=== PATIENT | male | born 1990 | race African-American/Black ===

== ENCOUNTER 2020-04-03 20:33 | Emergency (ER) | payer OTHER, SELFPAY ==
--- NOTE | ~2020-04-03 | XR_ITS ---
EXAMINATION: XR elbow LT min 3V DATE: 04/03/2020 21:23 INDICATION: Posterior left elbow pain TECHNIQUE: Anteroposterior, two oblique and lateral views of the left elbow were obtained. COMPARISON: None. FINDINGS: Alignment is normal. No fracture or joint effusion. Joint spaces are normal. No cortical erosions. So ft tissues are unremarkable. IMPRESSION: 1. Negative left elbow radiographs. Reviewed, dictated and finalized at location A.
[2020-04-03 20:37] VITALS: BP 129/89; PULSE 89; RESP 18; TEMP 36.4; O2SAT 98
[2020-04-03] MEDS: IBUPROFEN 400 MG TABLET 800 MG PO (21:27)
--- NOTE | 2020-04-03 21:59 | ED.UPPEXIN ---
HPI - Extremity Injury (Upper) General Chief Complaint: Extremity Injury, Upper Stated Complaint: L arm numbness Time Seen by Provider: 04/03/20 20:38 Source: patient Mode of arrival: EMS Limitations: no limitations History of Present Illness HPI narrative: This patient is a 29 year old male who presents for evaluation of tingling to his fingers. He reports over the past week he has intermittent tingling to his first through third fingers on his left hand. He states this seems to be worsen at night. HE denies having any numbness or tingling now. He denies focal weakness. He reports he does work out frequent. He reports intermittent pain to his left forearm, and this pain resolves with ibuprofen. HE has not taken medication since yesterday. His pain is currently 3/10. He denies headache, chest pain, sob, focal weakness. HE denies any complaints with left leg. MD complaint: injury to: left Related Data Allergies Allergy/AdvReac Type Severity Reaction Status Date / Time No Known Allergies Allergy Verified 04/03/20 20:42 Review of Systems Review of Systems: All systems reviewed & are unremarkable except as noted in HPI and below PMFSH Past Medical History Medical History (Updated 04/04/20 @ 00:00 by Toshia Erwin) Patient denies medical problems Surgical History Surgical History (Updated 04/03/20 @ 22:02 by Terri Hayden MD) No pertinent past surgical history Social History Social History (Updated 04/03/20 @ 22:02 by Terri Hayden MD) Smoking status: Never smoker Gender identity (if verbalized by the patient): Male Exam Const: General: no acute distress and alert Orientation/consciousness: patient oriented x3 HENMT: Head: normocephalic and atraumatic Face and sinus: normal facial exam, sinuses nontender and face symmetric Mouth: Yes Normal oral and palatal mucosa present, Yes lip normal, Yes oropharynx normal and Yes moist mucous membranes Eyes: EOM: EOMs intact bilaterally Neck: Neck: normal visual inspection and no lymphadenopathy Lymphatic: no lymphadenopathy noted Resp: Effort & Inspection: normal respiratory effort Skin: General skin exam: normal color Rashes: no rashes Neuro: General: patient oriented x3, moves all extremities, no focal motor deficits and CN's II-XI intact bilaterally Cranial nerves: Yes CN's II-XII intact bilaterally Speech: normal speech Gait exam (Neuro): Normal gait present Motor exam (neuro): 5/5 motor strength present throughout Sensory Exam: normal sensation and Normal double simultaneous stimulation for sensation Extrem: General: normal to inspection and no pedal edema Psych: Mental Status: mental status grossly normal Affect: normal affect Course Reevaluation(s) Reevaluation #1: PAtient has no focal deficits. He has normal sensation. He may have carpal tunnel or another peripheral nerve issue. Date: 04/03/20 Time: 22:04 Vital Signs Vital signs: Vital Signs Temperature 97.5 F L 04/03/20 20:37 Pulse Rate 89 04/03/20 20:37 Respiratory Rate 18 04/03/20 20:37 Blood Pressure 129/89 04/03/20 20:37 Pulse Oximetry 98 04/03/20 20:37 Temperature 97.5 F L 04/03/20 20:37 Pulse Rate 88 04/03/20 22:29 Respiratory Rate 14 04/03/20 22:29 Blood Pressure 138/88 04/03/20 22:29 Pulse Oximetry 98 04/03/20 22:29 MDM - Extremity Injury (Upper) Imaging Data Radiologist's impression: ITS Impressions Elbow X-Ray 04/03/20 21:35 IMPRESSION: 1. Negative left elbow radiographs. Discharge Plan Discharge Clinical Impression: Left hand paresthesia Patient Disposition: Home, Self-Care Condition: Stable Instructions: Antibiotic Form, Paresthesia (ED) Additional Instructions: today you were evaluated for tingling to your hand. This may be due to a pinched nerve such as carpal tunnel. You will need to follow up with primary care physician for evaluation. Prescriptions: New naproxe
[2020-04-03 22:29] VITALS: BP 138/88; PULSE 88; RESP 14; O2SAT 98
== END 2020-04-03 22:31 | disposition home or self-care (01) ==
PROVIDERS: Emergency Provider General Practice
DX: R20.2 Paresthesia of skin (principal)
CPT/HCPCS: 73080; 99283; A9270

== ENCOUNTER 2021-07-02 16:15 | Emergency (ER) | payer BC, SELFPAY ==
[2021-07-02 16:19] VITALS: BP 141/64; PULSE 119; RESP 20; TEMP 37.1
--- NOTE | 2021-07-02 18:07 | ED.URI ---
HPI - URI/Sore Throat General Chief Complaint: Upper Respiratory Infection Stated Complaint: headache, chills, congestion Time Seen by Provider: 07/02/21 17:32 Source: patient Mode of arrival: ambulatory Limitations: no limitations History of Present Illness HPI Narrative: This is a 30-year-old male that presents to the emergency department for cold symptoms present since yesterday. Reports headache, chills, congestion, and a mild cough. He is not Covid vaccinated. Denies fever or shortness of breath. Related Data Allergies Allergy/AdvReac Type Severity Reaction Status Date / Time No Known Allergies Allergy Verified 07/02/21 16:22 Review of Systems Review of Systems: CONSTITUTIONAL: Denies fever ENT: Reports congestion. Denies sore throat RESPIRATORY: Reports cough. Denies dyspnea. All systems reviewed & are unremarkable except as noted in HPI and below PMFSH Past Medical History Medical History (Updated 07/02/21 @ 18:11 by Krystle Mcclelland PA-C) Patient denies medical problems Surgical History Surgical History (Updated 04/03/20 @ 22:02 by Terri Hayden MD) No pertinent past surgical history Social History Social History (Updated 04/03/20 @ 22:02 by Terri Hayden MD) Smoking status: Never smoker Gender identity (if verbalized by the patient): Male Exam Narrative: GENERAL: Well-appearing, well-nourished, and in no acute distress. HEAD: Normocephalic, atraumatic. EYES: EOMI. ENT: Nares clear, no rhinorrhea or epistaxis. Mucous membranes moist. Oropharynx without tonsillar hypertrophy exudate or other lesions. Bilateral TMs pearly bales non-bulging NECK: Supple. No adenopathy or masses. CHEST: Clear to auscultation. No respiratory distress. No wheezes rales or rhonchi HEART: Regular rate and rhythm. No murmur heard. Normal peripheral pulses. EXTREMITIES: Normal range of motion. No edema. SKIN: Warm, dry, no rash. NEURO: No focal deficits. Alert and oriented x3. PSYCH: Normal mood and affect Course Vital Signs Vital signs: Vital Signs Temperature 98.7 F 07/02/21 16:19 Pulse Rate 119 H 07/02/21 16:19 Respiratory Rate 20 07/02/21 16:19 Blood Pressure 141/64 H 07/02/21 16:19 Temperature 98.7 F 07/02/21 16:19 Pulse Rate 119 H 07/02/21 16:19 Respiratory Rate 20 07/02/21 16:19 Blood Pressure 141/64 H 07/02/21 16:19 MDM - URI/Sore Throat MDM Narrative Medical decision making narrative: Patient presents to the emergency department for cold symptoms present since yesterday. He is afebrile and nontoxic-appearing. Oxygen saturation is normal on room air. Lungs are clear on exam. Influenza screen is negative. SARS-CoV-2 was sent. Patient was instructed on continued care of viral infection. He is to follow-up with primary care doctor. He was given warnings to return to the ER Lab Data Attestation: I reviewed the patient's lab results. Labs: Lab Results 07/02/21 Range/Units 17:38 SARS-CoV-2 RNA (RT-PCR) Pending Influenza A Screen Negative Reference Range: Negative Influenza B Screen Negative Reference Range: Negative Critical Care Time Critical Care Time Critical Care Time: No Discharge Plan Discharge Clinical Impression: Person under investigation for COVID-19 Upper respiratory infection Qualifiers: URI type: unspecified viral URI Qualified Code(s): J06.9 - Acute upper respiratory infection, unspecified Patient Disposition: Home, Self-Care Condition: Stable Instructions: Viral Syndrome (ED), COVID-19 (Coronavirus Disease 2019) (ED) Additional Instructions: Return to the emergency department for worsening symptoms, or any other concerns Remain well-hydrated, get plenty of rest, no work or school for several days. Take Tylenol or Motrin [id number] for pain as needed. Flonase for nasal congestion. Zyr
[2021-07-02 18:10] VITALS: BP 115/75; PULSE 98; RESP 18; TEMP 37.6; O2SAT 98
[2021-07-03 14:14] LABS: SARS-CoV-2 RNA PCR Positive
== END 2021-07-02 18:21 | disposition home or self-care (01) ==
PROVIDERS: Physician Assistant; Emergency Provider Emergency Medicine
DX: U07.1 COVID-19 (principal); J06.9 Acute upper respiratory infection, unspecified
CPT/HCPCS: 87804; 99283; C9803; U0003; U0005

== ENCOUNTER 2021-10-17 17:10 | Emergency (ER) | payer SELFPAY ==
[2021-10-17 17:23] VITALS: BP 141/90; PULSE 60; RESP 18; TEMP 36.9; O2SAT 96
--- NOTE | 2021-10-17 17:25 | ED.GENADULT ---
HPI - General Adult General Chief complaint: Unspecified Stated complaint: Work note Time Seen by Provider: 10/17/21 17:25 History of Present Illness HPI narrative: 31-year-old male presents the emergency room requesting a physician note to return to work. Patient states that he called in the last 3 days, would not tell provider why. Patient denies any complaints at this time Related Data Allergies Allergy/AdvReac Type Severity Reaction Status Date / Time No Known Allergies Allergy Verified 07/02/21 16:22 Review of Systems Review of Systems: CONSTITUTIONAL: Denies fever, chills, or sweats. EYES: Denies visual changes, redness, or discharge. ENT: Denies rhinorrhea, congestion, sore throat, or otalgia. CARDIOVASCULAR: Denies chest pain, palpitations, or edema. RESPIRATORY: Denies cough or dyspnea. GASTROINTESTINAL: Denies abdominal pain, nausea, vomiting, or diarrhea. GENITOURINARY: Denies dysuria or hematuria. SKIN: Denies rash or itching. MUSCULOSKELETAL: Denies back pain, joint pain, or myalgia. NEUROLOGIC: Denies headache, numbness, dizziness, or weakness. PSYCHIATRIC: Denies anxiety or depression. [facility] Past Medical History Medical History Patient denies medical problems Surgical History Surgical History No pertinent past surgical history Social History Social History Smoking status: Never smoker Gender identity (if verbalized by the patient): Male Exam Narrative: GENERAL: Well-appearing, well-nourished, and in no acute distress. HEAD: Normocephalic, atraumatic. EYES: PERRLA and EOMI. ENT: Nares clear, no rhinorrhea or epistaxis. Mucous membranes moist. Oropharynx without tonsillar hypertrophy exudate or other lesions. Bilateral TMs pearly bales nonbulging CHEST: Clear to auscultation. No respiratory distress. No wheezes rales or rhonchi HEART: Regular rate and rhythm. No murmur heard. Normal peripheral pulses. ABDOMEN: Soft, nontender, nondistended, normal active bowel sounds. EXTREMITIES: Normal range of motion. No edema. SKIN: Warm, dry, no rash. NEURO: No focal deficits. Alert and oriented x3. PSYCH: Normal mood and affect. Discharge Plan Discharge Clinical Impression: Wellness examination Patient Disposition: Home, Self-Care Condition: Stable Instructions: Antibiotic Form Prescriptions: No Action naproxen 500 mg tablet 500 mg PO BID PRN (Reason: pain) Qty: 20 RF: 0 methylprednisolone [Medrol (Jn)] 4 mg tablets,dose pack See Rx Instructions .ROUTE .COMPLEX Qty: 21 RF: 0 Follow-up/Referrals: PHYSICIAN,METAL FINISHER [Primary Care Provider] - Stand Alone Forms: Work/School Release IP Time of Disposition: 17:26
[2021-10-17 19:35] VITALS: BP 140/97; PULSE 73; RESP 18; TEMP 36.6; O2SAT 100
== END 2021-10-17 19:35 | disposition home or self-care (01) ==
LOC: ANHED 19:16
PROVIDERS: Emergency Provider Nurse Practitioner Family
DX: Z02.89 Encounter for other administrative examinations (principal)
CPT/HCPCS: 99281

== ENCOUNTER 2024-01-25 09:37 | Emergency (ER) | payer SELFPAY ==
--- NOTE | ~2024-01-25 | XR_ITS ---
XR lumbar spine min 4V 01/25/2024 12:52 Indication: Low back pain Procedure: 5 views lumbar spine Comparison: No prior studies for comparison. Findings: Vertebral body heights are maintained. No fracture or traumatic malalignment. Mild disc sj rowing at L5-S1. No evidence for spondylolisthesis. Pedicles intact. Mild levocurvature of the lumbar spine. Impression: 1: Mild lumbar spondylosis. Reviewed, dictated and finalized at location B. Impression: 1: Mild lumbar spondylosis.
[2024-01-25 09:43] VITALS: BP 147/104; PULSE 76; RESP 16; TEMP 36.6; O2SAT 100
[2024-01-25] MEDS: ACETAMINOPHEN 500 MG TABLET 1000 MG PO (12:29)
[2024-01-25] MEDS: KETOROLAC (*BKC) 60 MG/2 ML VIAL IM (12:31)
[2024-01-25] MEDS: methylPREDNISolone SOD SUCC 125 MG VIAL IM (12:31)
--- NOTE | 2024-01-25 12:55 | ED.BACK ---
HPI - Back Pain/Injury General Chief Complaint: Back Pain/Injury Stated Complaint: low back pain Time Seen by Provider: 01/25/24 11:34 Source: patient Mode of arrival: ambulatory Limitations: no limitations History of Present Illness HPI Narrative: Patient is a 33-year-old male who presents the ED with report of right lower back pain. Patient reports having pain for the last 3 days. He reports he was at the gym and bent over to pick something up when he felt a sharp pain in his right lower back. Pain persistent since then, worse with movement, sitting/standing. He took ibuprofen for the pain with some relief. Has not taken anything for pain today. Denies radiation down legs. Denies abdominal pain, incontinence, saddle anesthesia, numbness, weakness. Related Data Allergies Allergy/AdvReac Type Severity Reaction Status Date / Time No Known Allergies Allergy Verified 07/02/21 16:22 Review of Systems Review of Systems: CONSTITUTIONAL: Denies fever, chills, or sweats. GASTROINTESTINAL: Denies incontinence, abdominal pain, nausea, vomiting, or diarrhea. GENITOURINARY: Denies incontinence, dysuria or hematuria. MUSCULOSKELETAL: See HPI. NEUROLOGIC: Denies headache, dizziness, numbness, or weakness. All systems reviewed & are unremarkable except as noted in HPI and below PMFSH Past Medical History Medical History Patient denies medical problems Surgical History Surgical History No pertinent past surgical history Social History Social History Smoking status: Never smoker Gender identity (if verbalized by the patient): Male Exam Narrative: GENERAL: Well appearing, well-nourished, non-toxic, in no acute distress. HEAD: Normocephalic, atraumatic. RESPIRATORY: Airway patent, respirations nonlabored. Clear to auscultation bilaterally, no rales, rhonchi, wheezing. CARDIOVASCULAR: Regular rate and rhythm MUSCULOSKELETAL: Moves all extremities. No gross deformities. Mild tenderness palpation throughout right lumbosacral region. No midline spinal tenderness. Sensation intact. SKIN: Warm, dry, normal color. NEURO: A&O X3. Speech clear. Cranial nerves II-XII grossly intact. Steady gait. No ataxic movements. PSYCHIATRIC: Appropriate mood and affect. Normal interaction. Course Vital Signs Vital signs: Vital Signs Temperature 97.9 F 01/25/24 09:43 Pulse Rate 76 01/25/24 09:43 Respiratory Rate 16 01/25/24 09:43 Blood Pressure 147/104 H 01/25/24 09:43 Pulse Oximetry 100 01/25/24 09:43 Oxygen Delivery Room Air 01/25/24 09:43 Temperature 98.0 F 01/25/24 13:38 Pulse Rate 76 01/25/24 13:38 Respiratory Rate 16 01/25/24 13:38 Blood Pressure 136/88 01/25/24 13:38 Pulse Oximetry 98 01/25/24 13:38 Oxygen Delivery Room Air 01/25/24 09:43 MDM - Back Pain/Injury MDM Narrative Medical decision making narrative: Patient?s pain is positional and localized to paraspinal muscles without signs of cord compression or cauda equina. Normal neurologic exams. No red flag symptoms. No fever noted and no significant risk factors for osteomyelitis or spinal epidural abscess. No symptoms or signs to suggest pain is referred from abdominal or source. X-ray of lumbar spine showing mild spondylosis, no acute abnormality. Patient ambulates with a steady gait and is felt to be a reasonable candidate for continued outpatient management. Will discharge with short course of muscle relaxers for home use, advised to continue anti-inflammatories, lidocaine patches. Given return precautions. He agrees with plan. Discharged in stable condition. Given work note. Medical Records Attestation: I reviewed the patient's medical records. Imaging Data Attestation: I personally reviewed and interpreted this imaging study as souravo
[2024-01-25 13:38] VITALS: BP 136/88; PULSE 76; RESP 16; TEMP 36.7; O2SAT 98
== END 2024-01-25 13:38 | disposition home or self-care (01) ==
PROVIDERS: Emergency Provider Physician Assistant
DX: S39.012A Strain of muscle, fascia and tendon of lower back, initial encounter (principal); M47.816 Spondylosis without myelopathy or radiculopathy, lumbar region; X50.9XXA Other and unspecified overexertion or strenuous movements or postures, initial encounter
CPT/HCPCS: 72110; 96372; 99284; A9270; J1885; J2919

== ENCOUNTER 2024-01-31 06:41 | Emergency (ER) | payer SELFPAY ==
[2024-01-31 06:45] VITALS: BP 120/99; PULSE 82; RESP 14; TEMP 36.4; O2SAT 99
--- NOTE | 2024-01-31 07:26 | ED.BACK ---
HPI - Back Pain/Injury General Chief Complaint: Back Pain/Injury Stated Complaint: back pain Time Seen by Provider: 01/31/24 07:04 History of Present Illness HPI Narrative: Patient is a 33-year-old male who presents ER with right-sided low back pain. Ongoing for 1.5 weeks. Was seen in the ER earlier this week and prescribed anti-inflammatories as well as muscle relaxers. Reports he has had some good days since then but still has some persistent pain. No lower extremity numbness or weakness. No saddle anesthesia. No difficulty with urinary or bowel function. Denies any trauma. No fevers or chills or sweats. No IV drug use or recent dental procedures/invasive procedures. Related Data Allergies Allergy/AdvReac Type Severity Reaction Status Date / Time No Known Allergies Allergy Verified 07/02/21 16:22 Review of Systems Constitutional: Constitutional: Reports no additional constitutional complaints Gastrointestinal: Gastrointestinal: Reports no additional gastrointestinal complaints Genitourinary: Genitourinary: Reports no additional male genitourinary complaints Musculoskeletal: Musculoskeletal: Reports back pain, Denies arthralgias and Denies joint swelling Neurologic: Reports system reviewed and no additional complaints, except as documented PMFSH Past Medical History Medical History Patient denies medical problems Surgical History Surgical History No pertinent past surgical history Social History Social History Smoking status: Never smoker Gender identity (if verbalized by the patient): Male Exam Narrative: GENERAL: Well-appearing, well-nourished, and in no acute distress. HEAD: Normocephalic, atraumatic. ENT: Mucous membranes moist. CHEST: Clear to auscultation. No respiratory distress. HEART: Regular rate and rhythm. Normal peripheral pulses. Back: No reproducible midline tenderness. There is right sided back pain near the posterior superior iliac spine. EXTREMITIES: Normal range of motion. No edema. NEURO: Alert and oriented x3. PSYCH: Normal mood and affect. Course Course Emergency Course: Discussed back pain and the typical duration of discomfort until resolution symptoms. Recommend follow-up with a PCP and suggest PT if symptoms not improving or new neurologic component develops. Will give a different muscle relaxer to see if this helps. Vital Signs Vital signs: Vital Signs Temperature 97.6 F 01/31/24 06:45 Pulse Rate 82 01/31/24 06:45 Respiratory Rate 14 01/31/24 06:45 Blood Pressure 120/99 H 01/31/24 06:45 Pulse Oximetry 99 01/31/24 06:45 Oxygen Delivery Room Air 01/31/24 06:45 Temperature 97.6 F 01/31/24 06:45 Pulse Rate 82 01/31/24 06:45 Respiratory Rate 14 01/31/24 06:45 Blood Pressure 120/99 H 01/31/24 06:45 Pulse Oximetry 99 01/31/24 06:45 Oxygen Delivery Room Air 01/31/24 06:45 MDM - Back Pain/Injury MDM Narrative Medical decision making narrative: -Course: Resting comfortably, no acute interventions -Co-morbidities complicating care: None -External Chart Review: Previous ER note and imaging results from 01/25/2024. -Hx from independent Sources: Patient -Independent interpretation of studies: None -Interventions: None -Shared decision making / Disposition: Discharge home with prescription for tizanidine. Will give on-call PCP information. Discharge Plan Discharge Clinical Impression: Strain of lumbar region Patient Disposition: Home, Self-Care Condition: Stable Instructions: Low Back Strain (ED) Additional Instructions: Please return to the emergency department if you develop severe pain that is not controlled by pain medications or if you are unable to walk because of pain or weakness. Return to the emergency d
== END 2024-01-31 07:43 | disposition home or self-care (01) ==
PROVIDERS: Emergency Provider Emergency Medicine
DX: S39.012A Strain of muscle, fascia and tendon of lower back, initial encounter (principal); X58.XXXA Exposure to other specified factors, initial encounter
CPT/HCPCS: 99283